=== PATIENT | female | born 1970 | race Two or more races ===

== ENCOUNTER 2023-08-16 13:50 | Inpatient (IN) | payer MEDICAID ==
[~2023-08-16] VITALS: Ht 160 cm; Wt 74.5 kg
[2023-08-16] MEDS ORDERED: pantoprazole 40mg IV 80 MG in normal saline 100ml IV soln 100 ML IV ONE (14:35)
[2023-08-16] MEDS ORDERED: octreotide inj. 1,250 MCG in normal saline 250ml IV soln 250 ML IV ONE (14:35)
[2023-08-16] MEDS: metoclopramide 5 mg/ml inj IV ONE (14:59)
[2023-08-16] MEDS: normal saline 1000ML IV soln IV ONE (15:01)
[2023-08-16 15:03] LABS: EOSINOPHILS # (AUTO) 0.1 X10'3 (0-0.9); HEMATOCRIT 27.3 % (35.0-45.0); HEMOGLOBIN 8.6 g/dl (12.0-16.0); MEAN CORPUSCULAR VOLUME 79.8 FL (78-98); MONOCYTES # (AUTO) 0.4 X10'3 (0-0.9); RED BLOOD COUNT 3.42 X10'6 (4.20-5.60)
[2023-08-16 15:05] LABS: BASOPHILS % (AUTO) 0.6 % (0-1); EOSINOPHILS % (AUTO) 3.1 % (0-6); LYMPHOCYTES # (AUTO) 0.8 X10'3 (1.1-4.8); LYMPHOCYTES % (AUTO) 19.1 % (21-51); MEAN CORPUSCULAR HEMOGLOBIN 25.2 PG (27.0-31.0); MEAN CORPUSCULAR HGB CONC 31.6 g/dL (33.0-36.5); MEAN PLATELET VOLUME 8.2 FL (7.4-10.4); MONOCYTES % (AUTO) 8.3 % (2-12); NEUTROPHILS % (AUTO) 68.9 % (42-75); PLATELET COUNT 73 X10'3 (140-440); RED CELL DISTRIBUTION WIDTH 22.3 % (11.5-14.5); WHITE BLOOD COUNT 4.4 X10'3 (4.5-11.0)
[2023-08-16] MEDS: HYDROmorphone inj. 0.5 MG/0.5 ML DISP.SYRIN IV ONE ×2 (15:10→16:26)
[2023-08-16 15:16] LABS: ALBUMIN 2.6 G/DL (3.4-5.0); ANION GAP 4 (8-16); BLOOD UREA NITROGEN 24 MG/DL (7-18); BUN/CREATININE RATIO 25.8 (10.0-20.0); CALCIUM 7.2 MG/DL (8.5-10.1); CHLORIDE 109 MMOL/L (99-107); CREATININE 0.93 MG/DL (0.40-0.90); ETHANOL < 10 MG/DL (<10); GLUCOSE 121 MG/DL (70-104); POTASSIUM 4.4 MMOL/L (3.5-5.1); SODIUM 137 MMOL/L (135-145); TOTAL CARBON DIOXIDE 23.9 MMOL/L (24-32); eCRCL 59 ML/MIN; eGFR 64 ML/MIN
[2023-08-16 15:17] LABS: APTT 26 SECONDS (22-32); INR 1.2 INR; PROTHROMBIN TIME 12.5 SECONDS (9.0-12.0)
[2023-08-16] MEDS ORDERED: iohexol 300mg/ml 100ml inj. ONE (15:18)
[2023-08-16 16:09] LABS: ANISOCYTOSIS 3+; MICROCYTOSIS 1+; PLATELET ESTIMATE DECREASED
[2023-08-16 16:10] LABS: BURR CELLS 2+
[2023-08-16 16:12] LABS: HYPOCHROMASIA 1+; POLYCHROMASIA FEW
[2023-08-16 16:13] LABS: ELLIPTOCYTES 1+
[2023-08-16] MEDS: pantoprazole 40MG/NS 100ML BAG 100 ML IV ONE (16:26)
[2023-08-16] MEDS: octreotide inj. 500 MCG in normal saline 100ml IV soln 97.5 ML IV SCH (16:33)
[2023-08-16] MEDS ORDERED: HYDROcodone/acetaminophen 5mg/325mg tablet PO PRN (17:25)
[2023-08-16] MEDS ORDERED: acetaminophen 325mg tablet PO PRN ×2 (17:25)
[2023-08-16] MEDS ORDERED: potassium Cl 40MEQ/1/2NS 520ml 520 ML IV PRN (17:25)
[2023-08-16] MEDS ORDERED: magnesium 2GM in 50ml NS 50 ML IV PRN (17:25)
[2023-08-16] MEDS ORDERED: magnesium hydroxide 30ml (MOM) UD suspension PO PRN (17:25)
[2023-08-16] MEDS ORDERED: ondansetron/PF 4mg/2ml inj IV PRN (17:25)
[2023-08-16] MEDS ORDERED: potassium Cl 20 mEq SR tablet PO PRN ×2 (17:25)
[2023-08-16] MEDS ORDERED: mag hydrox/Alum hydrox/simeth 30ml oral suspension PO PRN (17:25)
[2023-08-16] MEDS ORDERED: magnesium 4gm in 100ml NS 100 ML IV PRN (17:25)
[2023-08-16 19:01] LABS: BASOPHILS # (AUTO) 0.1 X10'3 (0-0.2); HEMOGLOBIN 8.8 g/dl (12.0-16.0)
[2023-08-16 19:02] LABS: BASOPHILS % (AUTO) 1.3 % (0-1); EOSINOPHILS # (AUTO) 0.2 X10'3 (0-0.9); EOSINOPHILS % (AUTO) 4.3 % (0-6); HEMATOCRIT 28.1 % (35.0-45.0); LYMPHOCYTES # (AUTO) 0.9 X10'3 (1.1-4.8); LYMPHOCYTES % (AUTO) 21.5 % (21-51); MEAN CORPUSCULAR HGB CONC 31.4 g/dL (33.0-36.5); MEAN CORPUSCULAR VOLUME 79.5 FL (78-98); MEAN PLATELET VOLUME 8.4 FL (7.4-10.4); MONOCYTES # (AUTO) 0.4 X10'3 (0-0.9); MONOCYTES % (AUTO) 8.9 % (2-12); NEUTROPHILS # (AUTO) 2.5 X10'3 (1.8-7.7); PLATELET COUNT 70 X10'3 (140-440); RED BLOOD COUNT 3.53 X10'6 (4.20-5.60); RED CELL DISTRIBUTION WIDTH 21.8 % (11.5-14.5)
[2023-08-16 19:04] LABS: BILIRUBIN,URINE NEGATIVE (Neg); CLARITY,URINE CLEAR (Clear); COLOR,URINE YELLOW (Yellow); GLUCOSE, URINE NEGATIVE (Neg); KETONES,URINE NEGATIVE (Neg); LEUKOCYTE ESTERASE ,URINE NEGATIVE (Neg); NITRITES, URINE NEGATIVE (Neg); OCCULT BLOOD,URINE NEGATIVE (Neg); PH,URINE 6.5 (4.8-8.0); PROTEIN,URINE NEGATIVE (Neg); UROBILINOGEN,URINE 0.2 E.U/dL (0.2-1.0)
[2023-08-16 19:14] LABS: UA COLLECTION TYPE CLN CATCH MIDSTREAM
[2023-08-16 19:22] LABS: URINE AMPHETAMINE SCREEN NEGATIVE (Neg); URINE BARBITUATE SCREEN NEGATIVE (Neg); URINE BENZODIAZEPINES SCREEN NEGATIVE (Neg); URINE CANNABINOID SCREEN POSITIVE (Neg); URINE COCAINE SCREEN NEGATIVE (Neg); URINE METHADONE SCREEN NEGATIVE (Neg); URINE OPIATE SCREEN POSITIVE (Neg); URINE PHENCYCLIDINE SCREEN NEGATIVE (Neg)
[2023-08-16] MEDS: docusate sod 100mg capsule PO SCH (20:00)
[2023-08-16] MEDS: K and/or MAG REPLACEMENT MC SCH (20:00)
[2023-08-16 22:10] VITALS: BP 110/61; PULSE 88; RESP 16; TEMP 97.6; O2SAT 98
[2023-08-16] MEDS: HYDROmorphone inj. 0.5 MG/0.5 ML DISP.SYRIN IV PRN (22:20)
[2023-08-16 23:00] VITALS: RESP 18; O2SAT 95
[2023-08-16] MEDS: pantoprazole 40MG/NS 100ML BAG 100 ML IV SCH (23:35)
[2023-08-17] VITALS (19 sets, daily range): BP systolic 90–109; BP diastolic 46–70; PULSE 62–78; RESP 10–17; TEMP 97.2–98.9; O2SAT 93–100
[2023-08-17] MEDS: lactulose 20gm/30ml cup PO SCH ×2 (02:00→21:38)
[2023-08-17] MEDS: octreotide inj. 500 MCG in normal saline 100ml IV soln 97.5 ML IV SCH (02:04)
[2023-08-17 06:05] LABS: BASOPHILS % (AUTO) 0.1 % (0-1); EOSINOPHILS # (AUTO) 0.1 X10'3 (0-0.9); EOSINOPHILS % (AUTO) 3.1 % (0-6); HEMATOCRIT 26.3 % (35.0-45.0); HEMOGLOBIN 8.4 g/dl (12.0-16.0); LYMPHOCYTES # (AUTO) 0.6 X10'3 (1.1-4.8); LYMPHOCYTES % (AUTO) 18.7 % (21-51); MEAN CORPUSCULAR HEMOGLOBIN 25.2 PG (27.0-31.0); MEAN CORPUSCULAR HGB CONC 31.8 g/dL (33.0-36.5); MEAN CORPUSCULAR VOLUME 79.1 FL (78-98); MEAN PLATELET VOLUME 8.2 FL (7.4-10.4); MONOCYTES # (AUTO) 0.3 X10'3 (0-0.9); MONOCYTES % (AUTO) 9.3 % (2-12); NEUTROPHILS # (AUTO) 2.3 X10'3 (1.8-7.7); NEUTROPHILS % (AUTO) 68.8 % (42-75); PLATELET COUNT 65 X10'3 (140-440); RED BLOOD COUNT 3.33 X10'6 (4.20-5.60); RED CELL DISTRIBUTION WIDTH 21.3 % (11.5-14.5); WHITE BLOOD COUNT 3.4 X10'3 (4.5-11.0)
[2023-08-17 06:07] LABS: ALANINE AMINOTRANSFERASE 24 U/L (12-78); ALBUMIN 2.4 G/DL (3.4-5.0); ALBUMIN/GLOBULIN RATIO 0.7 (1.1-1.5); ALKALINE PHOSPHATASE 55 IU/L (46-116); ANION GAP 10 (8-16); ASPARTATE AMINO TRANSFERASE 36 U/L (10-37); BILIRUBIN,TOTAL 0.5 MG/DL (0.1-1.0); BLOOD UREA NITROGEN 18 MG/DL (7-18); BUN/CREATININE RATIO 18.2 (10.0-20.0); CALCIUM 7.5 MG/DL (8.5-10.1); CHLORIDE 113 MMOL/L (99-107); CREATININE 0.99 MG/DL (0.40-0.90); GLUCOSE 134 MG/DL (70-104); SODIUM 144 MMOL/L (135-145); TOTAL CARBON DIOXIDE 21.5 MMOL/L (24-32); TOTAL PROTEIN 5.7 G/DL (6.4-8.2); eCRCL 56 ML/MIN; eGFR 59 ML/MIN
[2023-08-17 06:12] LABS: POTASSIUM 4.4 MMOL/L (3.5-5.1)
[2023-08-17] MEDS ORDERED: TRAZ-251 PO (11:45)
[2023-08-17] MEDS ORDERED: LACT10SO3 PO (11:45)
[2023-08-17] MEDS ORDERED: ROPI1TAB47 PO (11:45)
[2023-08-17] MEDS ORDERED: SUCR1TAB PO (11:45)
[2023-08-17] MEDS ORDERED: PANT40TA54 PO (11:45)
[2023-08-17] MEDS ORDERED: FAMO40TA58 PO (11:45)
[2023-08-17] MEDS ORDERED: DOXE10CA3 PO (11:45)
[2023-08-17] MEDS ORDERED: ERGO500093 PO (11:45)
[2023-08-17] MEDS ORDERED: FURO40TA4 PO (11:45)
[2023-08-17] MEDS ORDERED: SPIR25TA5 PO (11:45)
[2023-08-17] MEDS ORDERED: MIDO5TAB4 PO (11:45)
[2023-08-17] MEDS ORDERED: PROC10TA97 PO (11:45)
[2023-08-17] MEDS ORDERED: ARIP30TA22 PO (11:45)
[2023-08-17] MEDS ORDERED: FOLI1TAB27 PO (11:45)
[2023-08-17] MEDS ORDERED: LEVO137T2 PO (11:45)
[2023-08-17] MEDS ORDERED: ONDA4TAB12 SL (11:45)
[2023-08-17] MEDS ORDERED: DICL100G59 TOP (11:45)
[2023-08-17] MEDS ORDERED: QUET400T54 PO (11:45)
[2023-08-17] MEDS ORDERED: TOPI50CA5 PO (11:45)
[2023-08-17] MEDS ORDERED: SUMA100T16 PO (11:45)
[2023-08-17] MEDS ORDERED: SUMA25TA35 PO (11:50)
[2023-08-17] MEDS ORDERED: MIDAZolam 1 MG/ML 5ML VIAL ONE (13:04)
[2023-08-17] MEDS ORDERED: LIDOcaine 2% Viscous 15ml cup ONE (13:04)
[2023-08-17] MEDS ORDERED: fentaNYL/PF 50MCG/1 ML 2ML syringe ONE (13:04)
[2023-08-17] MEDS ORDERED: proCHLORperazine 10mg tablet PO PRN (19:35)
[2023-08-17] MEDS ORDERED: SUMAtriptan 25 MG tablet PO PRN (19:35)
[2023-08-17] MEDS: pantoprazole 40mg Tablet.DR PO SCH (20:00)
[2023-08-17] MEDS: TOPIRAMATE 50 MG PO SCH (21:00)
[2023-08-17] MEDS: sucralfate 1 gm tablet PO SCH (21:38)
[2023-08-17] MEDS: traZODone 50mg tablet PO SCH (21:39)
[2023-08-17] MEDS: famotidine 20mg tablet PO SCH (21:40)
[2023-08-17] MEDS: midodrine 5mg tablet PO SCH (21:41)
[2023-08-17] MEDS: quetiapine 100mg tablet PO SCH (21:42)
[2023-08-17] MEDS: ROPINIRole 1mg tablet PO SCH (21:42)
[2023-08-17] MEDS: doxepin 10mg capsule PO SCH (21:43)
[2023-08-17] MEDS: HYDROcodone/acetaminophen 10/325mg tab PO PRN (21:45)
[2023-08-18] VITALS (12 sets, daily range): BP systolic 90–114; BP diastolic 47–77; PULSE 56–89; RESP 14–16; TEMP 97–98.8; O2SAT 97–100
[2023-08-18] MEDS: levoTHYROXINE 25mcg tablet PO SCH (07:44)
[2023-08-18] MEDS: levoTHYROXINE 112mcg tablet PO SCH (07:44)
[2023-08-18] MEDS: ARIPIPRAZOLE 10 MG TABLET PO SCH (07:45)
[2023-08-18] MEDS: furosemide 40mg tablet PO SCH (07:46)
[2023-08-18] MEDS: folic acid 1mg tablet PO SCH (07:46)
[2023-08-18] MEDS: spironolactone 25 MG tablet PO SCH (08:00)
[2023-08-18] MEDS ORDERED: SUMATRIPTAN SUCCINATE 100 MG PO SCH (08:00)
[2023-08-18 08:18] LABS: BASOPHILS % (AUTO) 0.6 % (0-1); EOSINOPHILS # (AUTO) 0.1 X10'3 (0-0.9); EOSINOPHILS % (AUTO) 4.5 % (0-6); HEMATOCRIT 26.2 % (35.0-45.0); HEMOGLOBIN 8.2 g/dl (12.0-16.0); LYMPHOCYTES # (AUTO) 0.5 X10'3 (1.1-4.8); LYMPHOCYTES % (AUTO) 22.2 % (21-51); MEAN CORPUSCULAR HEMOGLOBIN 24.8 PG (27.0-31.0); MEAN CORPUSCULAR HGB CONC 31.1 g/dL (33.0-36.5); MEAN CORPUSCULAR VOLUME 79.8 FL (78-98); MEAN PLATELET VOLUME 8.1 FL (7.4-10.4); MONOCYTES # (AUTO) 0.2 X10'3 (0-0.9); MONOCYTES % (AUTO) 11.1 % (2-12); NEUTROPHILS # (AUTO) 1.4 X10'3 (1.8-7.7); NEUTROPHILS % (AUTO) 61.6 % (42-75); PLATELET COUNT 70 X10'3 (140-440); RED BLOOD COUNT 3.29 X10'6 (4.20-5.60); RED CELL DISTRIBUTION WIDTH 21.8 % (11.5-14.5); WHITE BLOOD COUNT 2.2 X10'3 (4.5-11.0)
[2023-08-18 08:50] LABS: ALANINE AMINOTRANSFERASE 19 U/L (12-78); ALBUMIN 2.4 G/DL (3.4-5.0); ALBUMIN/GLOBULIN RATIO 0.7 (1.1-1.5); ALKALINE PHOSPHATASE 52 IU/L (46-116); ANION GAP 11 (8-16); ASPARTATE AMINO TRANSFERASE 27 U/L (10-37); BILIRUBIN,TOTAL 0.8 MG/DL (0.1-1.0); CALCIUM 7.9 MG/DL (8.5-10.1); CHLORIDE 113 MMOL/L (99-107); CREATININE 0.91 MG/DL (0.40-0.90); GLUCOSE 110 MG/DL (70-104); MAGNESIUM 2.2 MG/DL (1.5-2.4); POTASSIUM 4.1 MMOL/L (3.5-5.1); SODIUM 143 MMOL/L (135-145); TOTAL CARBON DIOXIDE 18.9 MMOL/L (24-32); TOTAL PROTEIN 5.8 G/DL (6.4-8.2); eCRCL 61 ML/MIN; eGFR 65 ML/MIN
[2023-08-18 08:53] LABS: ANISOCYTOSIS 3+; MICROCYTOSIS 1+; NUCLEATED RED BLOOD CELLS 1 /100WBC (0-0); PLATELET ESTIMATE DECREASED; TOTAL CELLS COUNTED 100
[2023-08-18 08:54] LABS: HYPOCHROMASIA 1+; POIKILOCYTOSIS 1+; POLYCHROMASIA FEW; ROULEAUX 1+
[2023-08-18 09:00] LABS: BLOOD UREA NITROGEN 12 MG/DL (7-18); BUN/CREATININE RATIO 13.2 (10.0-20.0)
[2023-08-18] MEDS: LORazepam 1 MG tablet PO PRN (17:38)
[2023-08-19 06:01] LABS: BASOPHILS % (AUTO) 0.8 % (0-1); EOSINOPHILS # (AUTO) 0.1 X10'3 (0-0.9); EOSINOPHILS % (AUTO) 3.2 % (0-6); HEMATOCRIT 30.7 % (35.0-45.0); HEMOGLOBIN 10.1 g/dl (12.0-16.0); LYMPHOCYTES # (AUTO) 0.6 X10'3 (1.1-4.8); LYMPHOCYTES % (AUTO) 15.7 % (21-51); MEAN CORPUSCULAR HEMOGLOBIN 25.8 PG (27.0-31.0); MEAN CORPUSCULAR HGB CONC 32.8 g/dL (33.0-36.5); MEAN CORPUSCULAR VOLUME 78.6 FL (78-98); MEAN PLATELET VOLUME 8.2 FL (7.4-10.4); MONOCYTES # (AUTO) 0.3 X10'3 (0-0.9); MONOCYTES % (AUTO) 8.6 % (2-12); NEUTROPHILS # (AUTO) 2.7 X10'3 (1.8-7.7); NEUTROPHILS % (AUTO) 71.7 % (42-75); PLATELET COUNT 76 X10'3 (140-440); RED BLOOD COUNT 3.91 X10'6 (4.20-5.60); RED CELL DISTRIBUTION WIDTH 21.7 % (11.5-14.5); WHITE BLOOD COUNT 3.8 X10'3 (4.5-11.0)
[2023-08-19 06:03] LABS: ALANINE AMINOTRANSFERASE 21 U/L (12-78); ALBUMIN 2.6 G/DL (3.4-5.0); ALBUMIN/GLOBULIN RATIO 0.7 (1.1-1.5); ALKALINE PHOSPHATASE 57 IU/L (46-116); ANION GAP 7 (8-16); ASPARTATE AMINO TRANSFERASE 20 U/L (10-37); BILIRUBIN,TOTAL 0.8 MG/DL (0.1-1.0); BLOOD UREA NITROGEN 13 MG/DL (7-18); BUN/CREATININE RATIO 12.5 (10.0-20.0); CALCIUM 7.9 MG/DL (8.5-10.1); CHLORIDE 107 MMOL/L (99-107); CREATININE 1.04 MG/DL (0.40-0.90); GLUCOSE 103 MG/DL (70-104); MAGNESIUM 1.8 MG/DL (1.5-2.4); POTASSIUM 3.6 MMOL/L (3.5-5.1); SODIUM 138 MMOL/L (135-145); TOTAL CARBON DIOXIDE 24.1 MMOL/L (24-32); TOTAL PROTEIN 6.2 G/DL (6.4-8.2); eCRCL 53 ML/MIN; eGFR 56 ML/MIN
[2023-08-19 06:24] VITALS: BP 90/52; PULSE 60; RESP 14; TEMP 98.8; O2SAT 98
[2023-08-19 07:12] LABS: ANISOCYTOSIS 3+; ELLIPTOCYTES 1+; MICROCYTOSIS 1+; PLATELET ESTIMATE DECREASED; POIKILOCYTOSIS FEW; POLYCHROMASIA FEW
== END 2023-08-19 08:11 | disposition home or self-care (01) | DRG 253 ==
LOC: ER 13:51 → ED HOLD 17:31 → EDBEDREQ 20:36 → SUR 3N 22:05
PROVIDERS: ADMIT Family Medicine; ATTEND Family Medicine
PROC: BW211ZZ Computerized Tomography (CT Scan) of Abdomen and Pelvis using Low Osmolar Contrast (ICD-10-PCS; 2023-08-16)
PROC: 0DJ08ZZ Inspection of Upper Intestinal Tract, Via Natural or Artificial Opening Endoscopic (ICD-10-PCS; principal; 2023-08-17)
PROC: 30233N1 Transfusion of Nonautologous Red Blood Cells into Peripheral Vein, Percutaneous Approach (ICD-10-PCS; 2023-08-18)
DX: K92.2 Gastrointestinal hemorrhage, unspecified (principal); D61.818 Other pancytopenia; E43 Unspecified severe protein-calorie malnutrition; N17.9 Acute kidney failure, unspecified; I85.10 Secondary esophageal varices without bleeding; K72.10 Chronic hepatic failure without coma; K76.6 Portal hypertension; D62 Acute posthemorrhagic anemia; K70.30 Alcoholic cirrhosis of liver without ascites; K31.89 Other diseases of stomach and duodenum; K21.9 Gastro-esophageal reflux disease without esophagitis; F31.9 Bipolar disorder, unspecified; K44.9 Diaphragmatic hernia without obstruction or gangrene; E03.9 Hypothyroidism, unspecified; Z82.49 Family history of ischemic heart disease and other diseases of the circulatory system; Z79.899 Other long term (current) drug therapy; Z90.49 Acquired absence of other specified parts of digestive tract; Z98.51 Tubal ligation status; Z68.29 Body mass index [BMI] 29.0-29.9, adult
CPT/HCPCS: 36415; 36430; 43235; 71045; 74177; 80048; 80053; 80305; 80320; 81003; 82140; 83735; 84484; 85007; 85008; 85025; 85610; 85730; 86885; 86900; 86901; 86920; 87081; 93005; 96365; 96375; 99152; 99285; A4620; C9113; G0378; J1170; J2250; J2354; J2765; J3010; J3490; J7030; J7040; P9016; Q9967